=== PATIENT | female | born 1960 | race Hispanic/Latino ===

== ENCOUNTER 2016-08-25 10:32 | Outpatient (CLI) | payer BC ==
--- NOTE | 2016-08-25 12:31 | Mammography Report ---
Bilateral digital diagnostic mammogram with CAD and bilateral global ultrasound including all 4 quadrants of each breast and the subareolar regions. History: New bilateral mastodynia x3 months. Findings: Comparison is made to previous mammogram dated August 25, 2015. There is heterogeneous density of the fibroglandular tissue, and the overall pattern is stable. There are scattered monomorphic benign microcalcifications which are stable. No masses or architectural distortion is seen. Sonographic evaluation of both breasts demonstrates no evidence of cystic or solid masses. Impression: No suspicious imaging findings. BI-RADS code: 2. Recommendation: Annual screening.
== END 2016-08-25 10:33 | disposition home or self-care (01) ==
LOC: SPVWC 10:32
PROVIDERS: ATTEND Obstetrics & Gynecology
DX: N64.4 Mastodynia (principal); R92.0 Mammographic microcalcification found on diagnostic imaging of breast
CPT/HCPCS: 76641; G0204; 77066

== ENCOUNTER 2017-08-31 10:55 | Outpatient (CLI) | payer BC ==
--- NOTE | 2017-08-31 11:53 | Mammography Report ---
BILATERAL MAMMOGRAM: FINDINGS: The breast tissue is extremely dense (>75% glandular). This may lower the sensitivity of mammography. No mass, distortion, suspicious calcification, or skin change is seen. There is no significant change when compared to her prior exams dating back to 2016. CAD was utilized. IMPRESSION: Negative mammogram. There is no mammographic evidence of malignancy. RECOMMENDATION: Follow-up per ACS guidelines. BI-RADS CATEGORY: 1 = Negative ACR BI-RADS MAMMOGRAPHIC CODES: 0 = Needs additional imaging evaluation; 1 = Negative; 2 = Benign; 3 = Probably benign; 4 = Suspicious; 5 = Malignant; 6 = Known biopsy-proven malignancy COMMENT: 1. Dense breast tissue, i.e., adenosis, fibrocystic changes, etc., may obscure an underlying neoplasm. 2. Approximately 10% of cancers are not detected with mammography. 3. A negative mammography report should not delay biopsy if a clinically suspicious mass is present. COMMENT: Patient follow-up letters are generated in [employer].
== END 2017-08-31 10:56 | disposition home or self-care (01) ==
LOC: SPVWC 10:55
PROVIDERS: ATTEND Obstetrics & Gynecology
DX: Z12.31 Encounter for screening mammogram for malignant neoplasm of breast (principal)
CPT/HCPCS: 77067

== ENCOUNTER 2018-09-03 11:12 | Outpatient (CLI) | payer BC ==
--- NOTE | 2018-09-03 12:25 | Mammography Report ---
BILATERAL DIGITAL SCREENING MAMMOGRAM with CAD: 09/03/18 11:12:00 CLINICAL: Routine screening. COMPARISON:08/31/17 FINDINGS: The breasts are heterogeneously dense, which may obscure small masses. No mass, architectural distortion or suspicious calcifications. IMPRESSION: No mammographic evidence of malignancy. BI-RADS CATEGORY: 1 - - Negative RECOMMENDATION: Routine mammographic screening in one year. COMMENT: Patient follow-up letters are generated by our [employer] application.
== END 2018-09-03 11:13 | disposition home or self-care (01) ==
LOC: SPVWC 11:12
PROVIDERS: ATTEND Obstetrics & Gynecology
DX: Z12.31 Encounter for screening mammogram for malignant neoplasm of breast (principal)
CPT/HCPCS: 77067

== ENCOUNTER 2019-10-31 09:40 | Outpatient (CLI) | payer BC ==
--- NOTE | 2019-10-31 10:27 | Mammography Report ---
DIGITAL SCREENING MAMMOGRAM WITH CAD, 10/31/2019 INDICATION: Routine screening mammography. SCREENING MAMMOGRAM TECHNIQUE: Digital bilateral 2D mammography was obtained in the craniocaudal and mediolateral obliq ue projections. This examination was interpreted with the benefit of Computer-Aided Detection analysi s. COMPARISON: 09/03/2018 FINDINGS: Breast Density: The breasts are extremely dense, which lowers the sensitivity of mammography. There is no evidence of dominant mass, suspicious calcifications or architectural distortion in eithe r breast. IMPRESSION: No evidence of malignancy Follow up recommendation: Routine yearly BI-RADS Category 1: Negative. A "normal" or negative report should not discourage follow up or biopsy of a clinically significant f inding. A written summary of these findings will be mailed to the patient. The patient will be entered into a mammography reporting system which will generate a reminder letter for the patient's next appointmen t at the appropriate interval. The [employer] recommends yearly mammograms starting at age 40 and continuing as l ginna as a woman is in good health. Breast MRI is recommended for women with an approximate 20-25% or greater lifetime risk of breast cancer, including women with a strong family history of breast or ova osmany cancer or who have been treated for Hodgkin's disease. Signer Name: Cole Cleveland MD Signed: 10/31/2019 10:23 AM Workstation Name: [id number]
== END 2019-10-31 09:41 | disposition home or self-care (01) ==
LOC: SPVWC 09:40
PROVIDERS: ATTEND Obstetrics & Gynecology
DX: Z12.31 Encounter for screening mammogram for malignant neoplasm of breast (principal)
CPT/HCPCS: 77067

== ENCOUNTER 2020-11-16 10:22 | Outpatient (CLI) | payer BC ==
--- NOTE | 2020-11-16 14:33 | Mammography Report ---
DIGITAL SCREENING MAMMOGRAM WITH CAD, 11/16/2020 CLINICAL INFORMATION / INDICATION: Routine screening mammography. SCREENING MAMMO TECHNIQUE: Digital bilateral 2D mammography was obtained in the craniocaudal and mediolateral obliqu e projections. This examination was interpreted with the benefit of Computer-Aided Detection analysis . COMPARISON: 10/31/19, 09/03/18 FINDINGS: Breast Density: The breasts are extremely dense, which lowers the sensitivity of mammography. No dominant mass, suspicious calcifications, or architectural distortion in either breast. IMPRESSION: No mammographic evidence of malignancy. Follow up recommendation: Routine yearly BI-RADS Category 1: Negative. A "normal" or negative report should not discourage follow up or biopsy of a clinically significant f inding. A written summary of these findings will be mailed to the patient. The patient will be entered into a mammography reporting system which will generate a reminder letter for the patient's next appointmen t at the appropriate interval. The [employer] recommends yearly mammograms starting at age 40 and continuing as l ginna as a woman is in good health. Breast MRI is recommended for women with an approximate 20-25% or greater lifetime risk of breast cancer, including women with a strong family history of breast or ova osmany cancer or who have been treated for Hodgkin's disease. Signer Name: Mathew Young MD Signed: 11/16/2020 2:29 PM Workstation Name: [facility] [employer] [email or web address]
== END 2020-11-16 10:23 | disposition home or self-care (01) ==
LOC: SPVWC 10:22
PROVIDERS: ATTEND Obstetrics & Gynecology
DX: Z12.31 Encounter for screening mammogram for malignant neoplasm of breast (principal)
CPT/HCPCS: 77067

== ENCOUNTER 2021-12-21 10:12 | Outpatient (CLI) | payer BC ==
--- NOTE | 2021-12-23 12:34 | Mammography Report ---
DIGITAL SCREENING MAMMOGRAM WITH TOMOSYNTHESIS WITH CAD, 12/21/2021 CLINICAL INFORMATION / INDICATION: Routine Screening Mammography. TECHNIQUE: Digital bilateral 2D and 3D mammography with tomosynthesis was obtained in the craniocaud al and mediolateral oblique projections. Computer-Aided Detection (CAD) analysis was used for interp retation of this study. COMPARISON: 11/16/2020, 10/31/2019, 09/03/2018 FINDINGS: Breast Density: The breasts are extremely dense, which lowers the sensitivity of mammography. Right breast: There is a new 8 mm asymmetry with irregular margins in the lateral right breast seen o n the CC tomosynthesis images only. This is located at the 8-9:00 position posterior depth. Left breast: No dominant mass or suspicious microcalcifications are identified. IMPRESSION: 1. New right breast asymmetry as described which will require additional evaluation with spot vikash michael views and right breast ultrasound Follow up recommendation: Special View: Spot Compression BI-RADS Category 0: INCOMPLETE. Needs additional imaging evaluation and/or prior mammograms for tramaine amaya. A "normal" or negative report should not discourage follow up or biopsy of a clinically significant f inding. A written summary of these findings will be mailed to the patient. The patient will be entered into a mammography reporting system which will generate a reminder letter for the patient's next appointmen t at the appropriate interval. The [employer] recommends yearly mammograms starting at age 40 and continuing as l ginna as a woman is in good health. Breast MRI is recommended for women with an approximate 20-25% or greater lifetime risk of breast cancer, including women with a strong family history of breast or ova osmany cancer or who have been treated for Hodgkin's disease. Signer Name: Donna Ignacio MD Signed: 12/23/2021 12:30 PM Workstation Name: [email or web address]
== END 2021-12-21 10:13 | disposition home or self-care (01) ==
LOC: SPVWC 10:12
PROVIDERS: ATTEND Obstetrics & Gynecology
DX: Z12.31 Encounter for screening mammogram for malignant neoplasm of breast (principal)
CPT/HCPCS: 77063; 77067

== ENCOUNTER 2022-01-10 10:02 | Outpatient (CLI) | payer BC ==
--- NOTE | 2022-01-10 11:41 | Mammography Report ---
RIGHT DIGITAL DIAGNOSTIC MAMMOGRAM CONVENTIONAL, 01/10/2022 RIGHT LIMITED BREAST ULTRASOUND CLINICAL INFORMATION / INDICATION: Patient presents as a callback from screening mammogram for furthe r evaluation of an asymmetry in the right breast. TECHNIQUE: Digital right mammographic imaging was performed. Spot compression views were obtained. Li mited ultrasound was performed. COMPARISON: Prior mammogram 12/21/2021 FINDINGS: Breast Density: The breasts are extremely dense, which lowers the sensitivity of mammography. MAMMOGRAPHIC FINDINGS: The previously described asymmetry in the lateral right breast is less conspic uous on spot compression views, suggesting overlapping fibroglandular tissue. Targeted ultrasound was performed for confirmation. ULTRASOUND FINDINGS: Targeted ultrasound evaluation was performed of the area of interest. Targeted ultrasound of the lateral right breast reveals dense fibroglandular tissue. No suspicious cystic or solid lesion identified. IMPRESSION: 1. The previously described asymmetry is less conspicuous on additional views and without sonographic correlate, compatible with overlapping fibroglandular tissue. No suspicious mammographic or sonograp hic abnormality identified. Follow up recommendation: Routine yearly screening mammogram. BI-RADS Category 1: NEGATIVE. A "normal" or negative report should not discourage follow up or biopsy of a clinically significant f inding. A written summary of these findings will be mailed to the patient. The patient will be entered into a mammography reporting system which will generate a reminder letter for the patient's next appointmen t at the appropriate interval. According to the [employer], yearly mammograms are recommended starting at age 40 and continuing as long as a woman is in good health. Breast MRI is recommended for women with an dionna roximately 20-25% or greater lifetime risk of breast cancer, including women with a strong family his tory of breast or ovarian cancer and women who have been treated for Hodgkin's disease. Signer Name: Earlene Todd MD Signed: 01/10/2022 11:37 AM Workstation Name: [id number]
== END 2022-01-10 10:03 | disposition home or self-care (01) ==
LOC: MAMMO 10:02
PROVIDERS: ATTEND Obstetrics & Gynecology
DX: R92.8 Other abnormal and inconclusive findings on diagnostic imaging of breast (principal)